=== PATIENT | female | born 1975 | race Caucasian/White ===

== ENCOUNTER 2021-12-26 09:26 | Outpatient (REF) | payer OTHER, SELFPAY ==
--- NOTE | ~2021-12-26 | MM_ITS ---
EXAMINATION: MM SCREENING DIGITAL BREAST TOMOSYNTHESIS, BILATERAL CLINICAL INFORMATION: Screening. Asymptomatic. The lifetime risk of breast cancer based on the Tyrer-Cuzick Model is 8%. COMPARISON: Mammography: 01/20/2019; outside mammography 07/05/2016 ([facility]); right breast ultrasound 02/03/2019. TECHNIQUE: Digital breast tomosynthesis is performed in both the craniocaudal and mediolateral oblique views along with computer-aided detection (CAD). Synthesized 2D images are generated from the tomosynthesis. FINDINGS: The breasts are heterogeneously dense, which may obscure small masses (ACR BI-RADS breast composition Category c). There are no significant masses, abnormal calcifications, or other abnormalities. Parenchymal pattern is similar to prior studies. There is no developing density or architectural abnormality. The axilla and skin contours are unremarkable. No significant changes. MM/MM tomosynthesis screening BI IMPRESSION: No significant changes from prior exam. ASSESSMENT: BI-RADS 1: Negative RECOMMENDATION: Routine annual mammography screening. This patient's information was entered into a reminder system with a target due date for their next mammogram.
== END 2021-12-26 09:27 | disposition home or self-care (01) ==
LOC: HO.MAMMO 09:26
PROVIDERS: PCP Internal Medicine; Visit Provider Internal Medicine
DX: Z12.31 Encounter for screening mammogram for malignant neoplasm of breast (principal)
CPT/HCPCS: 77063; 77067

== ENCOUNTER 2023-01-01 09:16 | Outpatient (REF) | payer MEDICAID, SELFPAY | END 2023-01-01 09:17 | disposition home or self-care (01) | LOC: HO.MAMMO 09:16 | PROVIDERS: PCP Family Medicine; Visit Provider Internal Medicine | DX: Z12.31 Encounter for screening mammogram for malignant neoplasm of breast (principal) | CPT/HCPCS: 77063; 77067 ==

== ENCOUNTER → 2023-01-01 09:30 | Outpatient (BNV) | payer MEDICAID, SELFPAY | PROVIDERS: PCP Family Medicine; Visit Provider Radiology Diagnostic Radiology | DX: Z12.31 Encounter for screening mammogram for malignant neoplasm of breast (principal) | CPT/HCPCS: 77063; 77067 ==

== ENCOUNTER 2023-11-13 08:39 | Outpatient (REF) | payer MEDICAID, SELFPAY ==
[2023-11-13 16:17] LABS: MANUAL DIFF FLAG NO
[2023-11-13 16:32] LABS: Basophils Absolute Auto 0.1 X10*3/uL (0.0-0.2); Eosinophils Absolute Auto 0.4 X10*3/uL (0.0-0.4); Eosinophils Percent Auto 7.8 % (0-4); Hematocrit 42.9 % (37.0-47.0); Hemoglobin 14.2 g/dl (12.0-16.0); Imm Gran Abs Auto 0.01 X10*3/uL (0.00-0.03); Imm Gran Pct Auto 0.2 % (0.0-0.4); Lymphocytes Absolute Auto 1.8 X10*3/uL (1.2-4.9); Lymphocytes Percent Auto 33.8 % (20-40); Mean Corpuscular HGB Conc 33.1 g/dl (31.0-35.0); Mean Corpuscular Hemoglobin 30.3 pg (27.0-33.0); Mean Corpuscular Volume 91.5 fL (80.0-98.0); Mean Platelet Volume 10.2 fL (9.4-12.3); Monocytes Absolute Auto 0.5 X10*3/uL (0.1-1.2); Monocytes Percent Auto 9.1 % (2-11); Neutrophils Absolute Auto 2.5 x10*3/uL (2.0-8.3); Neutrophils Percent Auto 48.1 % (45-73); Platelet Count 249 X10*3/uL (160-400); Red Blood Count 4.69 X10*6/uL (4.20-5.50); Red Cell Distribution Width 12.5 % (11.0-16.0); White Blood Count 5.3 X10*3/uL (4.8-10.8)
[2023-11-13 16:53] LABS: Alanine Aminotransferase 9 U/L (0-31); Albumin Level 4.1 g/dL (3.5-5.0); Alkaline Phosphatase 47 U/L (39-117); Anion Gap 13 (12-20); Aspartate Amino Transferase 15 U/L (5-31); Bilirubin Total 0.6 mg/dL (0.0-1.0); Blood Urea Nitrogen 19 mg/dL (9-16); Carbon Dioxide 27 mmol/L (22-29); Chloride 105 mmol/L (96-108); Cholesterol 211 mg/dL (<200); Estimated Glomerular Filt Rate > 60; Glucose Random 82 mg/dL (60-115); HDL Cholesterol 64 mg/dL (>40); LDL Cholesterol Calculated 133 mg/dL (<100); Potassium 4.2 mmol/L (3.3-5.1); Sodium 141 mmol/L (135-145); Total Protein 7.2 g/dL (6.5-8.0); Triglycerides 73 mg/dL (<150)
[2023-11-13 17:11] LABS: TSH reflex Free T4 3.22 uIU/mL (0.32-4.0)
[2023-11-18 16:53] LABS: Testosterone, Free 1.4 pg/mL (0.1-6.4); Testosterone, Total 15 ng/dL (2-45)
[2023-11-22 01:59] LABS: Estradiol Ultra Sensitive 11 pg/mL
== END 2023-11-13 08:40 | disposition home or self-care (01) ==
LOC: HO.CHCLDS 08:39
PROVIDERS: Visit Provider Internal Medicine
DX: Z00.00 Encounter for general adult medical examination without abnormal findings (principal); R53.83 Other fatigue; R68.82 Decreased libido
CPT/HCPCS: 36415; 80053; 80061; 82670; 84402; 84403; 84443; 85025

== ENCOUNTER 2024-09-04 08:07 | Outpatient (REF) | payer MEDICAID, SELFPAY ==
--- OUTSIDE RECORDS SUMMARY | 2024-09-04 08:12 | XMS_ITS | Clinical Summary ---
Author Organization [email or web address] Address [address] [place] [address] [address] [place] [address] Care Team Providers Care Pediatric Dietician Name Role Phone Sebastien Osorio MD Primary Care Provider [phone] Allergies No known active allergies Medications chlorhexidine (Peridex) 0.12 % solution Use 15 mL in the mouth or throat if needed in the morning, at noon, and at bedtime (PROPHYLAXI S) for up to 5 days. 110 mL 5 08/20/19 25 chlorhexidine (Peridex) 0.12 % solution Use 15 mL in the mouth or throat if needed in the morning, at noon, and at bedtime (PROPHYLAXI S) for up to 5 days. 110 mL 5 08/15/19 25 Discontinued chlorhexidine (Peridex) 0.12 % solution Use 15 mL in the mouth or throat if needed in the morning, at noon, and at bedtime (PROPHYLAXI S) for up to 5 days. 110 mL 5 09/04/19 25 Active Problems Problem Noted Date Diagnosed Date Allergic rhinitis 01/26/2012 Encounters Date Type Department Care Team Description 08/29/2024 10:00 AM EDT Office Visit [facility] [address] [place] [address] Dylon Liao DMD 08/14/2024 8:30 AM EDT Office Visit [facility] [address] [place] [address] Dylon Liao DMD 08/12/2024 Telephone [facility] [address] [place] [address] Jeanine Gomez 06/27/2024 Population Health Risk Score [facility] () Department [address] [place] [id number] Provider, Population Health Generic from Last 3 Months Immunizations Immunization Administration Dates Next Due Rabies Immune Globulin 09/04/2019 Rabies, IM Diploid Cell Culture 09/18/2019,09/10,09/09/2019,09/04/2019 Tdap 09/04/2019,12/30/2018 Social History Tobacco Use Types Packs/Day Years Used Date Smoking Tobacco: Never Passive Smoke Exposure: Never Smokeless Tobacco: Never Tobacco Cessation:Counseling Given: Not Answered Alcohol Use Standard Drinks/Week Comments Defer 0 (1 standard drink = 0.6 oz pur e alcohol) Depression Answer Date Recorded Patient Health Questionnaire-9 Score 0 10/29/2023 Patient Health Questionnaire-9 Score 0 10/29/2023 Last PHQ-9: Questionnaire Data Not on file 0 10/29/2023 Housing Stability Answer Date Recorded What is your housing situation today? I have shiela glover 10/29/[address] you li ve. Do you have problems with any of the following? None of the above 10/29/2023 Food Insecurity Answer Date Recorded Within the past 12 months, y ou worried that your food would run out before you got money to buy more: Never True 10/29/2023 Within the past 12 months,th e food you bought just didn't last and you didn't have enough money to get more: Never True Transportation Answer Date Recorded In the past 12 months, has l ack of transportation kept you from medical appts, meetings, work or from getting things needed for daily living? No 10/29/2023 Utilities Answer Date Recorded In the past 12 months, has t he electric, gas, oil or water company threatened to shut off services in your home? No 10/29/2023 Depression Answer Date Recorded Patient Health Questionnaire-2 Score 0 10/29/2023 Internet Access Answer Date Recorded Internet Access Q1 Yes 12/17/2023 Internet Access Q2 Not on file 12/17/2023 Comments No Sex and Gender Information Value Date Recorded Sex Assigned at Female 02/13/2022 10:18 AM EDT Legal Sex Female 10:18 AM EDT Gender Identity Female 02/13/2022 10:18 AM EDT Sexual Orientation Straight 02/13/2022 10 :18 AM EDT Last Filed Vital Signs Vital Sign Reading Time Taken Comments Blood Pressure 114/74 08/29/2024 9:56 AM EDT Pulse 64 08/29/2024 9:56 AM EDT Temperature 36.6 ??C (97.9 ??F) 10/29/2023 9:34 AM ED T Respiratory Rate 24 10/29/2023 9:34 AM EDT Oxygen Saturation 99% 10/29/2023 9:34 AM EDT Inhaled Oxygen Concentration - - Weight 59.9 kg (132 lb) 10/29/2023 9:34 AM EDT Height 162.6 cm (5' 4 ) 10/29/2023 9:34 AM EDT Body Mass Index 22.66 10/29/2023 9:34 AM EDT Plan of Treatment Upcoming Encounters Date Type Department Care Team (Late st Contact Info) Description 02/10/2025 8:00 AM EDT Office Visit [facility] [address] [place] [address] Jeanine Gomez Health Maintenance Due Date Last Done Comments CT Colonography 1974 Colonoscopy 1974 Colorectal Cancer Screening 1974 FIT DNA/Cologuard 1974 FIT 1974 FOBT 1974 Sigmoidoscopy 1974 Disability Screening 1974 Family Planning (PISQ) 1989 Hepatitis B Vaccines (1 of 3 - 19+ 3-dose series) 1993 COVID-19 Vaccine ( - 2023- season) 2023 Influenza Vaccine (#1) 2023 Pneumococcal Vaccine: 50+ Years (1 of 1 - PCV) 2024 Zoster Vaccines (1 of 2) 2024 Dental Oral Exam 06/24/2024 12/25/2023, , 02/08/2017, Additional history exists Dental Prophylaxis 06/24/2024 12/25/2023, 1 05/04/2018, 09/02/2018, Additional history exists Alcohol/Substance Use Screening 10/28/2024 10/29/2023 Depression Screening 10/28/2024 10/29/2023, 10/29/19 SDOH Screening 10/28/2024 10/29/2023 Dental X-Ray: Bitewings 12/25/2024 12/25/19 24, 03/04/2019, 02/18/2018, Additional history exists Pap Smear 12/27/2024 12/27/2021 Mammogram 01/01/2025 01/01/2023, 12/15, 01/24/2019 Tobacco Screening 08/29/2025 08/29/2024 Dental X-Ray: Full Mouth 12/25/2026 12/25/2023, 02/14 Cervical Cancer Screening 12/27/2026 HPV/Cotest 12/27/2026 12/27/2021, 05/30/2016 DTaP/Tdap/Td Vaccines (3 - Td or Tdap) 09/03/2029 09/04/2019, 12/30/2018 RSV Patients and Patients Aged 60 years or older (1 - 1-dose 75+ series) 2049 HIV Screening Completed 11/30/2021 Hepatitis C Screening Completed 11/30/2021 HIB Vaccines Aged Out No longer eligi ble based on patient's age to complete this topic HPV Vaccines Aged Out No longer eligi ble based on patient's age to complete this topic Hepatitis A Vaccines Aged Out No long er eligible based on patient's age to complete this topic IPV Vaccines Aged Out No longer eligi ble based on patient's age to complete this topic Meningococcal B Vaccine Aged Out No l onger eligible based on patient's age to complete this topic Meningococcal Vaccine Aged Out No latia nury eligible based on patient's age to complete this topic RSV under 20 months Aged Out No longe r eligible based on patient's age to complete this topic Rotavirus Vaccines Aged Out No longer eligible based on patient's age to complete this topic Procedures Procedure Name Priority Date/Time Associated Diagnosis Comments CASE PRESENTATION, DETAILED AND EXTENSIVE TREATMENT PLANNING Routine 08/29/2024 10:00 AM EDT 13 CROWN - PORCELAIN/CERAMIC Routine 08/29/2024 10:00 AM EDT 13 CROWN PREP Routine 08/14/2024 8:30 AM EDT PROPHYLAXIS - ADULT Routine 12/25/2023 8 :00 AM EDT Dental plaque Dental calculus INTRAORAL - COMPLETE SERIES OF RADIOGRAPHIC IMAGES Routine 12/25/2023 8:00 AM EDT PERIODIC ORAL EVALUATION - ESTABLISHED PATIENT Routine 12/25/2023 8:00 AM EDT BI MAMMOGRAM SCREENING TOMOSYNTHESIS BILATERAL Routine 01/01/2023 9:35 AM EDT THINPREP IMAGING PAP AND HPV MRNA E6/E7 WITH REFLEX TO HPV 16,18/45 Routine 12/27/2021 10:29 AM EDT ZZZ HISTORICAL HEPATITIS C AB W/REFL TO HCV RNA, QN, PCR Routine 11/30/2021 11:18 AM EDT HIV 1/2 ANTIGEN/ANTIBODY, FOURTH GENERATION W/RFL Routine 11/30/2021 11:18 AM EDT from Last 3 Months or Most Recently Relevant to Health Maintenance Results * BI Mammogram Screening Tomosynthesis Bilateral (01/01/2023 9:35 AM EDT) Anatomical Region Laterality Modality Breast Bilateral Mammography 01/01/2023 9:35 AM EDT Narrative 01/16/2023 1:41 PM EDT ? [facility] [place] ? [address] ?[place] [address] ? Mammography Report ? Signed ? Patient: Emanuel Quinones ?MR#: [id number] ?? [id number] ? : 1975 ?Acct:[id number] ? Age/Sex: 47 / F ?ADM Date: 09/18/23 ? Loc: HO.MAMMO ? Attending Dr: Sebastien Osorio MD ? Ordering Physician: Sebastien Osorio MD ?Results: 1 ?? Negative ? Date of Service: 01/01/23 ?Follow Up: 1 Year From Orig ?? inal Mammogram ? Procedure(s): MM tomosynthesis screening BI ?? Accession Number(s): [id number] ? cc: Sebastien Osorio MD; Luli Colon MD ? EXAMINATION: ?? MM SCREENING DIGITAL BREAST TOMOSYNTHESIS, BILATERAL ? CLINICAL INFORMATION: ? Screening. Asymptomatic. ? COMPARISON: ?? Mammography: This study is compared with prior exams dating back to ?? 2019. ? TECHNIQUE: ?? Digital breast tomosynthesis is performed in both the craniocaudal and ?? mediolateral oblique views along with computer-aided detection (CAD). ?? Synthesized 2D images are generated from the tomosynthesis. ? FINDINGS: ?? The breasts are heterogeneously dense, which may obscure small masses ?? (ACR BI-RADS breast composition Category c). ? There are no significant masses, abnormal calcifications, or other ?? abnormalities. ? MM/MM tomosynthesis screening BI ?? IMPRESSION: ?? No mammographic evidence of malignancy. ? ASSESSMENT: ? BI-RADS BI-RADS 1 - Negative ? RECOMMENDATION: ?? Routine annual mammography screening. ? 1 year F/U ? This examination should not preclude the clinical evaluation of a ?? suspicious palpable abnormality. ? This patient's information was entered into a reminder system with a ?? target due date for their next mammogram. ? Dictated By: ?Eilnor Ventura MD ? Signed By: ?<Electronically signed by Elinor Ventura MD in OV> ? 10/03/ 1337 ? DD/DT: 18/23 0935 ? TD/TT: ? Earth Science Technical Officer: ? Procedure Note Donotuseinterpreter, Image - 01/16/2023 [facility] [address] [place] [address] Mammography Report Signed Patient: Marcell QuinonesR#: [id number] : 1975Acct:[id number] Age/Sex: 47 / FADM Date: 01/01/23 Loc: HO.MAMMO Attending Dr: Sebastien Osorio MD Ordering Physician: Sebastien Osorio MDResults: 1 Negative Date of Service: 01/01/23Follow Up: 1 Year From Orig inal Mammogram Procedure(s): MM tomosynthesis screening BI Accession Number(s): [id number] cc: Sebastien Osorio MD; Luli Colon MD EXAMINATION: MM SCREENING DIGITAL BREAST TOMOSYNTHESIS, BILATERAL CLINICAL INFORMATION: Screening. Asymptomatic. COMPARISON: Mammography: This study is compared with prior exams dating back to 2019. TECHNIQUE: Digital breast tomosynthesis is performed in both the craniocaudal and mediolateral oblique views along with computer-aided detection (CAD). Synthesized 2D images are generated from the tomosynthesis. FINDINGS: The breasts are heterogeneously dense, which may obscure small masses (ACR BI-RADS breast composition Category c). There are no significant masses, abnormal calcifications, or other abnormalities. MM/MM tomosynthesis screening BI IMPRESSION: No mammographic evidence of malignancy. ASSESSMENT: BI-RADS BI-RADS 1 - Negative RECOMMENDATION: Routine annual mammography screening. 1 year F/U This examination should not preclude the clinical evaluation of a suspicious palpable abnormality. This patient's information was entered into a reminder system with a target due date for their next mammogram. Dictated By: Elinor Ventura MD Signed By: <Electronically signed by Elinor Ventura MD in OV> 01/16/23 1337 DD/ 0935 TD/TT: Earth Science Technical Officer: us Sebastien Osorio MD IMG BI PROCEDURES Final Res ult * THINPREP TIS PAP AND HPV mRNA E6/E7 WITH REFLEX TO HPV 16,18/45 (12/27/2021 10:29 AM EDT) Clinical Information: None given [facility] COMMENT SEE COMMENT [facility] Comment: EXPLANATORY NOTE: ? The Pap is a screening test for cervical cancer. It is ?? not a diagnostic test and is subject to false negative ?? and false positive results. It is most reliable when a ?? satisfactory sample, regularly obtained, is submitted ?? with relevant clinical findings and history, and when ?? the Pap result is evaluated along with historic and ?? current clinical information. ?? COMMENT: This Pap test has been evaluated with computer assisted technology. [facility] Cytotechnologis t: SEE COMMENT [facility] Comment: CMG, CT(ASCP) CT screening location: [address] ??[address] HPV nRNA E6/E7 Not Detected Not Detected [facility] Comment: Methodology: Spectroscopist-Mediated Amplification This assay detects E6/E7 viral messenger RNA (mRNA) from 14 high-risk HPV types (16,18,31,33,35,39,45,51,52,56,58,59,66,68). ? Cervical sources are required for HPV testing. If a vaginal source from a patient who has had a total hysterectomy with removal of cervix was ?? submitted, please contact the testing laboratory for alternative testing options. ?? For additional information, please refer to http://education.[employer]/faq/SUK923g1 (This link if provided for information/ educational purposes only.) Interpretation/ Result: Negative for intraepithelial lesion or malignancy. [facility] LMP: 11/24/2021 [facility] Prev. BX: NONE [facility] Prev. PAP: NIL/NEG 2017 [facility] SOURCE: Cervix [facility] Statement Of Adequacy: SEE COMMENT [facility] Comment: Satisfactory for evaluation. Endocervical/transformation zone component absent. 12/27/2021 10:2 9 AM EDT Vonda Merida CNM LAB PATHOLOGY ORDERABLES Final Result [facility] [address] [place] [address], * HEPATITIS C AB W/REFL TO HCV RNA, QN, PCR (11/30/2021 11:18 AM EDT) HEPATITIS C ANTIBODY NON-REACT ERROL NON-REACT ERROL [facility] INDEX 0.13 <1.00 [facility] Comment: ?? HCV antibody was non-reactive. There is no laboratory ?? evidence of HCV infection. ?? In most cases, no further action is required. However, if recent HCV exposure is suspected, a test for HCV RNA (test code 98699) is suggested. ?? For additional information please refer to http://[employer]/faq/VNE94h8 (This link is being provided for informational/ educational purposes only.) ?? 11/30/2021 11:1 8 AM EDT Sebastien Osorio MD HISTORICAL/NON ORDERABLE LA BS Final Result Performing Organization Address [facility] Co de Phone Number [facility] [address] * HIV 1/2 ANTIGEN/ANTIBODY,FOURTH GENERATION W/RFL (11/30/2021 11:18 AM EDT) Pathologist [facility] HIV-1/2 ANTIGEN AND ANTIBODIES, 4TH GENERATION W/ REFLEX NON-REACT ERROL NON-REACT ERROL [facility] Comment: HIV-1 antigen and HIV-1/HIV-2 antibodies were not detected. There is no laboratory evidence of HIV infection. ?? PLEASE NOTE: This information has been disclosed to you from records whose confidentiality may be protected by state law. ??If your state requires such protection, then the state law prohibits you from making any further disclosure of the information without the specific written consent of the person to whom it pertains, or as otherwise permitted by law. A general authorization for the release of medical or other information is NOT sufficient for this purpose. ? For additional information please refer to http://[employer]/faq/HGJ126 (This link is being provided for informational/ educational purposes only.) ? The performance of this assay has not been clinically validated in patients less than 2 years old. ?? 11/30/2021 11:1 8 AM EDT us Sebastien Osorio MD LAB BLOOD ORDERABLES Final Result [facility] [address] from Last 3 Months or Most Recently Relevant to Health Maintenance Insurance [facility] C3 DENTAL-[facility] [place] [address] [place] [id number] Care Teams Pediatric Dietician Relationship Specialty Start Date End Date Sebastien Osorio MD [address] [place] [address] [place] [address] PCP - General Internal Medicine 05/18/16
--- OUTSIDE RECORDS SUMMARY | 2024-09-04 08:12 | XMS_ITS | Encounter Summary ---
Author Organization [facility] Address [address] [place] [address] [address] [place] [address] Care Team Providers Care Recreation Programmer Name Role Phone Sebastien Osorio MD Primary Care Provider [phone] Encounter Details Date Type Department Care Team (Latest Contact Info) Description 03/04/2019 Abstract [facility] CONVERSIONS Dental, Provider, DDS Social History Tobacco Use Types Packs/Day Years Used Date Smoking Tobacco: Never Assessed Comments Unknown Sex and Gender Information Value Date Recorded Sex Assigned at Female 02/13/2022 10:18 AM EDT Legal Sex Female 10:18 AM EDT Gender Identity Female 02/13/2022 10:18 AM EDT Sexual Orientation Straight 02/13/2022 10 :18 AM EDT documented as of this encounter Plan of Treatment Upcoming Encounters Date Type Department Care Team ( st Contact Info) Description 02/10/2025 8:00 AM EDT Office Visit [facility] [address] [place] [address] Jeanine Gomez documented as of this encounter Visit Diagnoses Not on filedocumented in this encounter Care Teams Recreation Programmer Relationship Specialty Start Date End Date Sebastien Osorio MD [address] [facility] [place] [address] PCP - General Internal Medicine 05/18/16 documented as of this encounter
[2024-09-10 16:29] LABS: Quantiferon TB Gold Plus 1 NEGATIVE (NEGATIVE); TB Test (QFT) Mitogen -Nil >10.00 IU/mL; TB Test (QFT) Nil 0.08 IU/mL; TB Test (QFT) Plus TB1 -Nil 0.02 IU/mL; TB Test (QFT) Plus TB2 -Nil 0.01 IU/mL
== END 2024-09-04 08:08 | disposition home or self-care (01) ==
LOC: HO.CHCLDS 08:07
PROVIDERS: Visit Provider Internal Medicine
DX: Z11.1 Encounter for screening for respiratory tuberculosis (principal)
CPT/HCPCS: 36415; 86480